=== PATIENT | female | born 1950 | race Caucasian/White ===

== ENCOUNTER 2024-01-13 10:12 | Emergency (ER) | payer MEDICARE, SELFPAY ==
[2024-01-13] VITALS (18 sets, daily range): BP systolic 121–136; BP diastolic 70–86; PULSE 76–106; RESP 13–22; TEMP 36.9; O2SAT 95–99
--- NOTE | 2024-01-13 10:00 | RT.EKG_ITS ---
APPROVED REPORT Exam: Resting ECG Reason for Exam: Chest pain Patient Location: E HR:92 bpm ECG Measurements Heart Rate 92 AXIS AK 128 P 61 QRSd 72 QRS 24 QT 342 T 35 QTc 424 Conclusion Sinus rhythm...normal P axis, V-rate 60- 99 sinus rhythm, normal axis, normal itnervals
[2024-01-13 10:46] LABS: Abs Immature Grans 0.05 10^3/uL (0.0-0.06); Absolute Basophil Count 0.07 10^3/uL (0.0-0.2); Absolute Eosinophil Count 0.07 10^3/uL (0.0-0.7); Absolute Lymphocyte Count 2.23 10^3/uL (1.2-3.4); Absolute Monocyte Count 1.48 10^3/uL (0.1-0.8); Absolute Neutrophil Count 7.77 10^3/uL (1.2-6.7); Basophils % 0.6 %; Eosinophils % 0.6 %; HCT 45.2 % (36.0-46.0); HGB 15.3 g/dL (11.2-15.7); Immature Grans % 0.4 %; Lymphocytes % 19.1 %; MCH 32.7 pg (27.0-33.0); MCHC 33.8 % (32.0-36.0); MCV 97 fL (80-95); Monocytes % 12.7 %; Neutrophils % 66.6 %; Platelet Count 327 10^3/uL (130-400); RBC 4.68 10^6/uL (3.93-5.22); RDW 13.2 % (11.7-14.6); RDW-SD 47.8 fL; WBC 11.67 10^3/uL (4.4-10.8)
[2024-01-13] MEDS: ACETAMINOPHEN 1,000 MG/100 ML BTL 400 MG IVPB (10:55)
[2024-01-13] MEDS: Lidocaine 5% Patch 1 PATCH TP (10:56)
[2024-01-13 11:03] LABS: Prothrombin Time 10.2 sec (9.1-11.1)
[2024-01-13 11:11] LABS: ALT 34 U/L (14-59); AST 22 U/L (15-37); Albumin 3.3 g/dL (3.4-5.0); Alkaline Phosphatase 76 U/L (46-116); Anion Gap 8.8 mmol/L (3-11); BUN 10 mg/dL (7-18); Bilirubin, Total 0.61 mg/dL (0.2-1.0); CO2 26.2 mmol/L (21.0-32.0); CREATININE 0.9 mg/dL (0.55-1.02); Calcium 9.3 mg/dL (8.5-10.1); Chloride 103 mmol/L (98-107); Estimated GFR 67.92 (mL/min/1.73m2); Glucose 140 mg/dL (74-106); NT-proBNP 131 pg/mL (<300); Potassium 3.9 mmol/L (3.5-5.1); Sodium 138 mmol/L (136-145); Total Protein 7.6 g/dL (6.4-8.2); Troponin I < 50 ng/L (< or =60)
--- NOTE | 2024-01-13 11:15 | W.ED.GENAD ---
Discharge Plan Disposition Patient Disposition: Home Condition: Improving Discharge Details Clinical Impression: Lung consolidation, Pleural effusion Primary Care Provider: Ca,Local ED Provider: Dixon Wade Home Meds and New Rx's Prescriptions: New amoxicillin-pot clavulanate 875-125 mg tablet 1 tab PO BID 7 Days Qty: 14 0RF azithromycin 250 mg tablet 250 mg PO DAILY 4 Days Qty: 4 0RF Rx Instructions: start on day 2 of therapy fluconazole 150 mg tablet 150 mg PO ONCE Qty: 1 0RF Rx Instructions: prn yeast infection No Action metoprolol succinate 50 mg tablet extended release 24 hr 50 mg PO DAILY esomeprazole magnesium 40 mg capsule,delayed release(DR/EC) 40 mg PO DAILY amlodipine 2.5 mg tablet 2.5 mg PO DAILY levothyroxine 25 mcg tablet 25 mcg PO DAILY zolpidem 10 mg tablet 10 mg PO ONCE losartan 100 mg tablet 100 mg PO DAILY meloxicam 15 mg tablet 15 mg PO DAILY Discharge Instructions Instructions: Pleural effusion, Pneumonia, Adult ED Additional Instructions: Please follow-up closely with your primary care physician. Discuss follow-up imaging to determine cause of collection and fluid in your lung. Please return to the emergency department for any worsening symptoms. Take antibiotics as prescribed. HPI General Date/Time Provider Initiated Documentation: 01/13/24 10:36. HPI Narrative: 73-year-old female presents with left-sided chest discomfort pleuritic in nature also worse with movement over the last 4 to 5 days, endorses recent travel from [facility] patient takes tibolone. Denies leg feeling or pain. Denies history of coronary disease or thromboembolic disease Related Data Home Medications ?Medication ?Instructions ?Recorded ?Confirmed amlodipine 2.5 mg tablet 2.5 mg PO DAILY 01/13/24 01/13/24 amoxicillin 875 mg-potassium 1 tab PO BID 7 days #14 tabs 01/13/24 clavulanate 125 mg tablet azithromycin 250 mg tablet 250 mg PO DAILY 4 days #4 tabs 01/13/24 esomeprazole magnesium 40 mg 40 mg PO DAILY 01/13/24 01/13/24 capsule,delayed release fluconazole 150 mg tablet 150 mg PO ONCE #1 tab 01/13/24 levothyroxine 25 mcg tablet 25 mcg PO DAILY 01/13/24 01/13/24 losartan 100 mg tablet 100 mg PO DAILY 01/13/24 01/13/24 meloxicam 15 mg tablet 15 mg PO DAILY 01/13/24 01/13/24 metoprolol succinate 50 mg 50 mg PO DAILY 01/13/24 01/13/24 tablet,extended release 24 hr zolpidem 10 mg tablet 10 mg PO ONCE 01/13/24 01/13/24 Previous Rx's ?Medication ?Instructions ?Recorded amoxicillin 875 mg-potassium 1 tab PO BID 7 days #14 tabs 01/13/24 clavulanate 125 mg tablet azithromycin 250 mg tablet 250 mg PO DAILY 4 days #4 tabs 01/13/24 fluconazole 150 mg tablet 150 mg PO ONCE #1 tab 01/13/24 Allergies Allergy/AdvReac Type Severity Reaction Status Date / Time No Known Allergies Allergy Unverified 01/13/24 10:44 General Stated Complaint: Chest Pain CHAYO: 3 Exam Narrative Exam Narrative: Alert oriented interactive speaking full sentences Moist mucous membranes tolerate secretions Lung sounds clear no wheezes rales or rhonchi Heart sounds normal no murmurs rubs or gallops No peripheral edema Alert oriented moving all extremities no deficit Course Vital Signs Vital signs: Vital Signs Pulse 102 H 01/13/24 10:16 Respiratory Rate 16 01/13/24 10:16 Blood Pressure 136/78 01/13/24 10:16 Pulse Oximetry 99 01/13/24 10:16 Pulse 92 H 01/13/24 11:00 Pulse 106 H 01/13/24 11:01 Respiratory Rate 21 01/13/24 11:01 Respiratory Effort Normal 01/13/24 11:07 Blood Pressure 136/86 01/13/24 11:00 Blood Pressure Mean 100 01/13/24 11:00 Pulse Oximetry 99 01/13/24 11:01 Pain Level 0 01/13/24 11:07 Lab/Test Results Lab/Test Results: Laboratory Tests Range/Units 01/13/24 10:31 WBC (4.4-10.8) 10^3/uL 11.67 H RBC (3.93-5.22) 10^6/uL 4.68 Hgb (11.2-15.7) g/dL 15.3 Hct (36.0-46.0) % 45.2 MCV (80-95) fL 97 H MCH (27.0-33.0) pg 32.7 MCHC (32.0-36.0) % 33.8 RDW (11.7-14.6) % 13.2 Plt Count (130-400) 10^3/uL 327 MPV (8.0-11.0) fL 10.0 Immature Gran % % 0.4 Neutrophils % % 66.6 Lymphocytes % % 19.1 Monocytes % % 12.7 Eosinophils % % 0.6 Basophils % % 0.6 Nucleated RBC % (0.0-0.3) % 0.0 Absolute Neutrophils (1.2-6.7) 10^3/uL 7.77 H Absolute Lymphocytes (1.2-3.4) 10^3/uL 2.23 Absolute Monocytes (0.1-0.8) 10^3/uL 1.48 H Absolute Eosinophils (0.0-0.7) 10^3/uL 0.07 Absolute Basophils (0.0-0.2) 10^3/uL 0.07 PT (9.1-11.1) sec 10.2 INR (0.9-1.1) 1.0 APTT (23.6-32.8) sec 25.0 Sodium (136-145) mmol/L 138 Potassium (3.5-5.1) mmol/L 3.9 Chloride (98-107) mmol/L 103 Carbon Dioxide (21.0-32.0) mmol/L 26.2 Anion Gap (3-11) mmol/L 8.8 BUN (7-18) mg/dL 10 Creatinine (0.55-1.02) mg/dL 0.9 Est GFR (CKD-EPI 2020) (mL/min/1.73m2) 67.92 Glucose (74-106) mg/dL 140 H Calcium (8.5-10.1) mg/dL 9.3 Total Bilirubin (0.2-1.0) mg/dL 0.61 AST (15-37) U/L 22 ALT (14-59) U/L 34 Alkaline Phosphatase (46-116) U/L 76 Troponin I (< or =60) ng/L < 50 NT-Pro-B Natriuret Pep (<300) pg/mL 131 Total Protein (6.4-8.2) g/dL 7.6 Albumin (3.4-5.0) g/dL 3.3 L Medical Decision Making 73-year-old female presents with left-sided pleuritic chest pain over the last 4 to 5 days in the setting of recent travel from [place] in [place], patient takes tibolone which is noted to have estrogenergic activity; EKG normal sinus rhythm normal axis normal intervals nonischemic; no to be tachycardic on arrival, no hypoxia no tachypnea. Must consider PE versus pleurisy versus costochondritis versus muscle strain versus less likely pneumothorax versus pneumonia lower suspicion for aortic pathology was also consider ACS. Screening labs imaging close reassessment 12: 18 resting really no acute distress. No respiratory symptoms at this time. Negative for PE. Evidence of possible atelectasis versus early infiltrate with small pleural effusion. Likely cause of patient's chest discomfort. Will start empirically on azithromycin and Augmentin. Discussed with patient the importance of close follow-up for repeat imaging of chest given patient's age no infectious symptoms such as fever sweats chills or white blood cell count must also consider the potential for pulmonary malignancy. Will discharge on oral antibiotic, home care instructions return precautions given Quality:SDOH Health Related Social Needs: No Data to Display PFSH All Active Problems (Updated 01/13/24 @ 12:20 by Dixon Wade MD) Pleural effusion (Acute) Lung consolidation (Acute) Social History Smoking/Tobacco Use Status: Never Smoking risk assessment performed?: Yes Alcohol Intake: current Alcohol Intake frequency: a few times a month Alcohol type: wine Drug use: Never Substance use type: does not use Housing: house Do you feel safe at home: Yes Do you feel safe in your relationship?: Yes
[2024-01-13] MEDS: Omnipaque 350 MG/ML 100 ML BTL IJ (11:48)
[2024-01-13] MEDS: Normal Saline - Diluent 50 ML VIAL IJ (11:50)
--- NOTE | 2024-01-13 11:50 | DI.CT_ITS ---
Exam(s) CT CHEST PE CTA EXAM: CT CHEST PE CTA CLINICAL HISTORY: left pleuritic chest pain, travel, estrogen sup. TECHNIQUE: Imaging Protocol: Axial CT angiography was performed with multi-slice acquisition and mu lti-planar reconstructions as well as axial, coronal and sagittal MIP reconstructions. CONTRAST MATERIAL: Intravenous: Omnipaque 350 Contrast volume:100 ml COMPARISON: No exams were available for comparison FINDINGS: Pulmonary Arteries: No evidence of filling defect to suggest pulmonary emboli. Tracheobronchial tree: No mucous plugging. Mediastinum and [place]: No dominant adenopathy or fluid collection. Small hiatal hernia. Pulmonary parenchyma: Left lower lobe atelectasis. Question of atelectasis versus infiltrate in the lingula. No dominant measurable mass. Pleura: Small left pleural effusion. No pneumothorax. Heart: The heart is not dilated. No coronary artery calcifications are seen. Aorta: Thoracic aorta non-dilated. No dissection. Upper abdomen: No acute findings. Bones: Unremarkable for age. Tubes, Catheters, and Lines: None Soft tissues: Unremarkable. IMPRESSION: No evidence of pulmonary embolism. Small left pleural effusion and adjacent atelectasis. Pneumonia not entirely excluded. Question of small area infiltrate versus atelectasis in the anterior inferior lingula. RADIATION DOSE DELIVERED: Total DLP DATA REPOSITORY: All CT scans at this facility are submitted to the National Radiology Data Registry (NRDR) Dose Index Registry (DIR) with the [employer] ([employer]). RADIATION OPTIMIZATION: All CT scans at this facility use at least one of these dose optimization te chniques: automated exposure control; mA and/or kV adjustment per patient size (includes targeted exa ms where dose is matched to clinical indication); or iterative reconstruction.
[2024-01-13] MEDS: Amoxicillin 875/Clav. 125 TAB PO (12:23)
[2024-01-13] MEDS: Azithromycin 250 MG TAB 500 MG PO (12:23)
== END 2024-01-13 12:39 | disposition home or self-care (01) ==
LOC: ER 12:34
PROVIDERS: Emergency Provider Emergency Medicine
DX: J18.1 Lobar pneumonia, unspecified organism (principal); J90 Pleural effusion, not elsewhere classified
CPT/HCPCS: 71275; 80053; 93005; 96365; 99285; 83880; 84484; 85025; 85610; 85730; 93010; 99284; J0131; J3490